=== PATIENT | female | born 1955 | race Caucasian/White ===

== ENCOUNTER 2021-11-05 13:54 | Emergency (ER) | payer OTHER ==
[~2021-11-05] VITALS: Ht 152.4 cm; Wt 54.4 kg
[2021-11-05 14:31] VITALS: BP 136/84
--- NOTE | 2021-11-05 16:20 | NUR ---
BIB SON C/O 12/21 RIGHT SHOULDER PAIN X 2 DAYS. DENIES TRAUMA/INJURY. PMH: HTN.
--- NOTE | 2021-11-05 16:24 | NUR ---
Patient being evaluated by DR DENIS at [facility].
[2021-11-05] MEDS ORDERED: MENT90CR TP (16:31)
[2021-11-05] MEDS ORDERED: IBUP-2213 PO (16:31)
[2021-11-05] MEDS ORDERED: KETOROLAC 15 MG/ML VIAL IM ONE (16:40)
[2021-11-05 16:58] VITALS: BP 136/84
== END 2021-11-05 16:58 | disposition home or self-care (01) ==
LOC: MED 13:54
DX: M75.31 Calcific tendinitis of right shoulder (principal); M25.811 Other specified joint disorders, right shoulder; I10 Essential (primary) hypertension; Z79.899 Other long term (current) drug therapy; Z79.1 Long term (current) use of non-steroidal anti-inflammatories (NSAID)
CPT/HCPCS: 73020; 96372; 99283; J1885

== ENCOUNTER 2021-12-04 16:14 | Emergency (ER) | payer OTHER ==
[~2021-12-04] VITALS: Ht 154.9 cm; Wt 56.8 kg
[~2021-12-04 16:14] MED LIST: IBUP-2213 PO; MENT90CR TP
[2021-12-04 16:20] VITALS: BP 122/81
[2021-12-04] MEDS ORDERED: ACET-2619 PO (16:55)
[2021-12-04] MEDS ORDERED: ACETAMINOPHEN 325 MG TAB PO ONE (16:55)
[2021-12-04] MEDS ORDERED: AMOXIL/CLAVULANATE 875/125 MG 1 TAB PO ONE (16:55)
[2021-12-04] MEDS ORDERED: AMOX1TAB8 PO (16:55)
--- NOTE | 2021-12-04 17:00 | NUR ---
66 y/o female bib self, c/o right ear pain for 3 days. denies nausea, vomiting, diarrhea. skin is pink/warm/dry. a&o x4, sinhala speaking, with even and steady gait. lungs clear bl, heart rate even and regular. pt denies dysuria, hematuria, urinary frequency or retention, or anyone sick in the household with the same symptoms. pt denies any fever, cp, sob, or cough at this time. pt states pain is 7/10 at this time. ermd made aware of pt. pmh: htn nka med: denies
[2021-12-04 17:50] VITALS: BP 122/81
--- NOTE | 2021-12-04 17:50 | NUR ---
Patient discharged with v/s stable. Written and verbal after care instructions given and explained. Patient alert, oriented and verbalized understanding of instructions. Ambulatory with steady gait. All questions addressed prior to discharge. ID band removed. Patient advised to follow up with PMD. Rx of augmentin, tylenol (sent) given. Patient educated on indication of medication including possible reaction and side effects. Opportunity to ask questions provided and answered.
== END 2021-12-04 17:50 | disposition home or self-care (01) ==
LOC: MED 16:14
DX: H66.91 Otitis media, unspecified, right ear (principal); I10 Essential (primary) hypertension
CPT/HCPCS: 99283